=== PATIENT | male | born 1950 | race Caucasian/White ===

== ENCOUNTER → 2025-03-02 08:36 | Outpatient (REF) | payer MEDICARE, OTHER, SELFPAY ==
[2025-03-02 09:41] LABS: PT 14.5 Sec (11.4-14.6)
[2025-03-02 09:43] LABS: % Basophils 0.8 % (0-2); % Eosinophils 2.8 % (0-6); % Immature Granulocytes 0.3 % (0-0.5); % Neutrophils 63.1 % (42.2-75.2); Absolute Basophils 0.1 10^3/uL (0-0.2); Absolute Eosinophils 0.2 10^3/uL (0-0.7); Absolute Lymphocytes 1.5 10^3/uL (1.2-3.4); Absolute Monocytes 0.5 10^3/uL (0.1-0.6); Absolute Neutrophils 3.9 10^3/uL (1.4-6.5); Hematocrit 41.5 % (39.0-52.0); Hemoglobin 14.7 g/dL (13.0-18.0); Mean Corp Hgb Conc. 35.4 g/dL (33.0-37.0); Mean Corpuscular Hgb 31.2 pg (27.0-31.0); Mean Corpuscular Volume 88.1 fL (80.0-94.0); Mean Platelet Volume 9.2 fL (7.4-10.4); Nucleated Red Blood Cells % 0 % (-); Platelet Count 145 10^3/uL (130-400); Red Blood Cell Count 4.71 10^6/uL (4.70-6.10); Red Cell Dist. Width 14.3 % (11.5-14.5); White Blood Cell Count 6.2 10^3/uL (4.8-10.8)
[2025-03-02 09:52] LABS: ALT (SGPT) 34 U/L (0-50); AST (SGOT) 28 U/L (17-59); Albumin 4.6 g/dl (3.5-5.0); Alkaline Phosphatase 83 U/L (38-126); Blood Urea Nitrogen 18 mg/dl (9-20); Calcium 9.9 mg/dl (8.4-10.2); Carbon Dioxide 22 mmol/L (22-30); Chloride 107 mmol/L (98-107); Glucose 103 mg/dl (70-99); Magnesium 1.9 mg/dl (1.6-2.3); Potassium 4.4 mmol/L (3.5-5.1); Sodium 137 mmol/L (135-145); Total Bilirubin 0.9 mg/dl (0.2-1.3); Total Protein 7.3 g/dl (6.3-8.2); eGFR > 60.00
== END ==
LOC: SDSPAT 08:36
PROVIDERS: ATTENDING PHYSICIAN Internal Medicine Cardiovascular Disease; FAMILY PHYSICIAN Family Medicine; OTHER PHYSICIAN Internal Medicine Cardiovascular Disease
DX: I48.19 Other persistent atrial fibrillation (principal)
CPT/HCPCS: 36415; 75572; 80053; 83735; 85025; 85610; 86850; 86900; 86901; 93005; Q9967

== ENCOUNTER 2025-03-30 06:11 | Day surgery (SDC) | payer MEDICARE, OTHER, SELFPAY ==
[2025-03-02 08:46] VITALS: BMI 31.7
--- NOTE | 2025-03-06 14:29 | W.PN.UPDATE ---
Update Note
Progress Note Update
CT chest 03/03/25:-faxed to PCP and LM--patient aware
No evidence for thrombus in the left atrium. Esophagus is closely applied to the posterior wall of the left atrium
IMPRESSION:
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 Pulmonary venous dimensions provided above
Partially calcified soft tissue mass in the prevascular space of the mediastinum. Possible etiologies include germ cell tumor; thymic neoplasm; old, partially calcified hematoma. PET/CT may be helpful for further evaluation.
2 small left upper lobe pulmonary nodules. If the patient has elevated risk of lung cancer, follow-up chest CT in 12 months would be recommended for reevaluation
[2025-03-30] VITALS (12 sets, daily range): BP systolic 112–163; BP diastolic 56–77; BMI 29.3
[2025-03-30 08:35] LABS: ACT-LR - POC 273 Seconds (116-155)
[2025-03-30 08:55] LABS: ACT-LR - POC 334 Seconds (116-155)
--- NOTE | 2025-03-30 09:09 | ITS.CL.ABL ---
Customer Service Teller - Ablation
Ablation
Procedure Report:
ELECTROPHYSIOLOGY ABLATION STUDY
DATE:: March 30, 2025 REFERRING: Dr. Rich Quiñones
INDICATION: Persistent supraventricular tachycardia in the form of atrial fibrillation. Patient also has an Accolade MRI pacemaker and we discussed holding area the need for generator change number operator the next 2 to 3 months. We will set up a generator
change appointment in May and he is being remotely followed with Dr. Quiñones's office.
HISTORY: See H and P. As above
ANTIARRHYTHMIC DRUG: Bisoprolol
PRE-PROCEDURE LUDIVINA: No atrial thrombus
PRESENTING RHYTHM: Underlying atrial fibrillation with ventricular pacing the patient is pacemaker dependent
'TIME-OUT': called and confirmed.
SEDATION/ANESTHESIA: provided via the anesthesia department using general anesthesia (LMA).
INTRAVENOUS/ARTERIAL ACCESS:
Right femoral venous - 10 Fr, 8Fr
Scratch that [id number] suture to right femoral vein
Ultrasound guidance for bilateral femoral vein access was utilized by me to obtain access with demonstration of normal anatomy
CHADS-VASC Score:
HAS-Bled Score
PROCEDURE:
1. A decapolar CS catheter was placed within the CS for mapping and pacing. This was also used as the reference catheter for the 3-D map.
2. The intracardiac ultrasound catheter was positioned in the RA to identify the FO for targeting of transseptal puncture, assist in identification of the pulmonary vein ostia, monitoring pre and post ablation pulmonary vein flow velocities,
monitoring for 'bubble' formation during RF application as a sign of thermal injury, and to monitor for pericardial effusion during mapping and ablation procedure. Left atrial size, LV ejection fraction, and pulmonary vein flows were monitored
pre and post ablation procedure. The other valves were inspected and found to be free of significant regurgitation or stenosis.
3. Half of the calculated heparin bolus was administered prior to the first transeptal puncture. Transseptal puncture was performed to diagnose RA and LA pressure so that safetey of LA mapping and ablation could be further assessed, and to access
the left atrium and pulmonary veins for mapping and ablation. This entailed advancing an 10 Turkmen steerable sheath with dilator into the superior vena cava and withdrawing both (monitoring intracardiac ultrasound, fluoroscopy and tip pressure)
with the tip oriented toward the atrial septum. The fossa ovalis was engaged (indicated by sudden displacement of the sheath tip as well as tenting of the fossa seen on intracardiac ultrasound). Left atrial access required a pass with the
Brockenbrough needle extended. Left atrial catheter position was confirmed by pressure monitoring (RA mean pressure 8 mm Hg and LA mean presure 14 mm Hg), LA saturation (99%), as well as fluoroscopy. The sheath was advanced over the dilator and
positioned in the left atrium. The remainder of the calculated heparin bolus was administered and heparin was
infused to maintain ACT at 300 -350 seconds throughout the case.
4. RA pacing was performed via the proximal decapolar poles and LA pacing was performed via the distal decapolr poles.
5. A quadrapolar catheter was first positioned at the His position for His Bundle recording which was tagged via the 3-D Navex sytem, and then passed to the RVA for RV pacing and recording.
6. The 9 mm lattice LIPV, LSPV, RSPV and the RIPV.
7. Next, a 3-D map was created using Navex. A 3-D reconstructed CT image was compared to the 3-D Navex map to assist in anatomic interpretation, mapping and ablation. The CT image and the NavX image were fused.
8. Wide circumferential ablation around the left and right pulmonary veins as well as roof posterior wall substrate ablation and floor line across the left atrium. Atrial fibrillation persisted beyond pulmonary vein isolation so the left atrial
roof, left atrial floor, and left atrial posterior wall substrate were performed. Atrial fibrillation still persisted and the patient was cardioverted successfully with a 300 J synchronized biphasic shock to DOO mode. Entrance block and exit block
was confirmed in all 4 pulmonary veins and the posterior wall.
9. The device was interrogated and reprogrammed at the beginning at the end of the procedure. The patient was left at DDDR 60-130 bpm with outputs increased slightly higher for the duration of the procedure and the device will be reinterrogated in
the holding area with thresholds adjusted. The patient had 1.5 years of battery left at the time of procedure and will be scheduled for generator change in a few months given the recalled device.
TOTAL FLOURO TIME: 12.1 minutes
TOTAL RF DURATION: 0 minutes
REVERSAL OF HEPARIN: 30 mg of protamine, slow IV administration
COMPLICATIONS:
None
Intracardiac US shows no pericardial effusion post ablation.
SUMMARY:
Complex left atrial mapping and ablation.
Isolation of all 4 pulmonary veins, LA roofline, LA posterior floor line, LA posterior wall substrate ablation.
RECOMMENDATIONS:
1. Ambulate in 4 hours
2. Resume anticoagulation
3. Outpatient follow-up with me in 4 to 6 weeks to discuss generator change and follow his progress from an arrhythmia burden perspective
4. He will continue outpatient follow-up with Dr. Quiñones in parallel and Dr. Quiñones remotely monitors his device
Copy to: Dr. Rich Quiñones
--- NOTE | 2025-03-30 14:16 | W.PN.UPDATE ---
Update Note
Progress Note Update
75 yo WM s/p PVI (Same day). He denies cp, sob, omi diet, voiding, amb w/o dizziness, R fem site c/d/i no HT, EKG AVpaced. He will resume Eliquis tonight. Activity restrictions reviewed. His device was interrogated and it is not a recalled device
and still has around 2y battery life. He will f/u Dr. Malin in 1 mo and continue cardiac care with Dr. Quiñones for now. He is for d/c home after 2pm.
== END 2025-03-30 14:05 | disposition home or self-care (01) ==
LOC: CATH 06:11
PROVIDERS: ATTENDING PHYSICIAN Internal Medicine Cardiovascular Disease; FAMILY PHYSICIAN Family Medicine; OTHER PHYSICIAN Internal Medicine Cardiovascular Disease
DX: I48.19 Other persistent atrial fibrillation (principal); I44.2 Atrioventricular block, complete; I25.10 Atherosclerotic heart disease of native coronary artery without angina pectoris; I10 Essential (primary) hypertension; E78.5 Hyperlipidemia, unspecified; E66.9 Obesity, unspecified; Z87.891 Personal history of nicotine dependence; N40.0 Benign prostatic hyperplasia without lower urinary tract symptoms; I48.91 Unspecified atrial fibrillation; R91.1 Solitary pulmonary nodule; Z79.899 Other long term (current) drug therapy; Z79.02 Long term (current) use of antithrombotics/antiplatelets; I44.7 Left bundle-branch block, unspecified; I47.10 Supraventricular tachycardia, unspecified
CPT/HCPCS: C1733; C1894; C1730; C1766; C1892; C1759; 85347; 86900; 86901; 93005; 93656; 93657